=== PATIENT | female | born 1935 | race Caucasian/White ===

== ENCOUNTER 2017-01-18 16:07 | Emergency (ER) | payer MEDICARE, OTHER ==
[~2017-01-18] VITALS: Ht 157.5 cm; Wt 50.0 kg
[~2017-01-18 16:07] MED LIST: AMBI10TA PO; ENOX40P SQ; FERR325T PO; FISH1000 PO; FURO1TAB93 PO; LISI-591 PO; OXYC1SOL5 PO; SENN5UDC PO; STOO100T PO; TAB-TAB PO; TOPR100T15 PO; VITA100017 PO; VITA10002 PO; VITA200017 PO; Z.0.COMMODE-3:1
--- NOTE | 2017-01-18 16:14 | PD ---
HPI Chief Complaint: hand injury Time Seen by Provider: 16:13 Travel History International Travel<30 days: No Contact w/Intl Traveler<30days: No Traveled to known affect area: No History of Present Illness HPI 81-year-old female was trying to clean her curio cabinet which is made of glass. She lost her balance and hit her head onto the glass which made the glass break and as she was falling she lacerated both her forearm but right worse than the left. There was a lot of bleeding from the right forearm wound. After seeing the amount of blood patient got anxious and had a fecal incontinence. EMS arrived and had to apply pressure dressing to her right forearm. Vital signs were stable. There was no open head wounds. Patient was awake and answering appropriately but seemed anxious. [facility] Past Medical History Narrative Medical List of her past medical, surgical, social and family history is reviewed from the nursing note. Arthritis: Yes Blood Disorders: No Cancer: No Cardiovascular Problems: No Diabetes: No Diminished Hearing: No Endocrine: No Genitourinary: No Hepatitis: No Hiatal Hernia: No Hypertension: Yes Immune Disorder: No Musculoskeletal: Yes (ARTHRITIS, CHRONIC RIGHT FOOT PAIN, OSTEOPENIA) Neurologic: Yes (NEUROPATHY RIGHT HAND) Psychiatric: No Reproductive: No Respiratory: No Seizures: Yes Thyroid Disease: No Past Surgical History Abdominal Surgery: Yes (APPENDECTOMY) AICD: No Appendectomy: Yes Gynecologic Surgery: Yes (HYSTERECTOMY) Hysterectomy: Yes Joint Replacement: Yes (PANCHITO. KNEES) Pacemaker: No Tonsillectomy: Yes Social History Alcohol Use: No Tobacco Use: No Substance Use: No Allergies-Medications (Allergen,Severity, Reaction): Coded Allergies: No Known Allergies (Verified , 01/18/17) Comments No known drug allergies. Reported Meds & Prescriptions Reported Meds & Active Scripts Active Colace (Docusate Sodium) 100 Mg Capsule 1 Cap PO BID Keflex (Cephalexin) 500 Mg Capsule 500 Mg PO Q8H 10 Days Reported Ambien (Zolpidem Tartrate) 10 Mg Tab 10 Mg PO HS PRN Toprol XL (Metoprolol Succinate) 100 Mg Tab 100 Mg PO DAILY Oxycodone-Acetaminophen 10-325 mg Tab 1 Tab PO Q6H PRN Fish Oil 1,000 mg Softgel ([place]-3/Dha/Epa/Fish Oil) 1,000 Mg (120 Mg-180 Mg) Capsule Multiple Vitamin 1 Tab 1 Tab PO DAILY Stool Softener (Docusate Sodium) 100 Mg Tab Zestril (Lisinopril) 20 Mg Tab 20 Mg PO DAILY Lasix (Furosemide) 40 Mg Tab 40 Mg PO DAILY Ferrous Sulfate 325 Mg (65 Mg Iron) Tablet 325 Mg PO DAILY Vitamin B-12 (Cyanocobalamin) 1,000 Mcg Tab 1,000 Mcg PO DAILY Vitamin D3 (Cholecalciferol) 2,000 Unit Cap 2,000 Units PO DAILY Vitamin C (Ascorbic Acid) 250 Mg Tab 1,000 Mg PO Narrative Medication List of her home medications reviewed from the nursing note. Review of Systems Except as stated in HPI: all other systems reviewed are Neg Physical Exam Narrative GENERAL: Awake, alert, elderly, moderate distress SKIN: Focused skin assessment warm/dry. 7 cm large, deep right forearm laceration which is complex with visible tendon injury of the extensor tendon. Active bleeding noticed. The extensor digitorum communis muscle belly seems to be lacerated as well. Patient says that extending the index finger hurts the most. There are superficial laceration on the more distal part of the wrist. HEAD: Atraumatic. Normocephalic. EYES: Pupils equal and round. No scleral icterus. No injection or drainage. ENT: No nasal bleeding or discharge. Mucous membranes pink and moist. NECK: Trachea midline. No JVD. CARDIOVASCULAR: Regular rate and rhythm. No murmur appreciated. RESPIRATORY: No accessory muscle use. Clear to auscultation. Breath sounds equal bilaterally. GASTROINTESTINAL: Abdomen soft, non-tender, nondistended. Hepatic and splenic margins not palpable. MUSCULOSKELETAL: No obvious deformities. No clubbing. No cyanosis. No edema. NEUROLOGICAL: Awake and alert. No obvious cranial nerve deficits. Motor grossly within normal limits. Normal speech. PSYCHIATRIC: Appropriate mood and affect; insight and judgment normal. Data Data Last Documented VS Orders Orders Lidocaine 1% Inj (50 Ml) (Xylocaine 1% I (01/18/17 16:20) Lidocaine Pf 1% Inj (Xylocaine-Mpf 1% In (01/18/17 16:30) Forearm (2vws) (01/18/17 ) Cefazolin 2 Gm Premix (Ancef 2 Gm Premix (01/18/17 17:15) Tetanus/Diphtheria Tox Adult (Tetanus/Di (01/18/17 17:15) Ct Brain W/O Iv Contrast(Rout) (01/18/17 ) Sodium Chlorid 0.9% 500 Ml Inj (Ns 500 M (01/18/17 17:45) Lidocaine 1% Inj (50 Ml) (Xylocaine 1% I (01/18/17 18:15) Forearm (2vws) (01/18/17 19:02) MDM Medical Decision Making Medical Screen Exam Complete: Yes Emergency Medical Condition: Yes Medical Record Reviewed: Yes Differential Diagnosis Complex deep laceration, retained foreign body, extensor digitorum communists muscle belly and tendon laceration Narrative Course 6:50 PM the wound was cleaned with 1.5 L of normal saline and Betadine. Please refer to my procedure note regarding the repair. X-ray of the wrist showed retained foreign body. The PA has reopened the wound and trying to extract the foreign body. Patient eventually needs to follow up with hand surgeon. Hence the laceration is just superficially opposed so that he can open up and repair the tendon. This weekend there is no hand coverage. However Friday Dr. Fleming is on and I will have the patient follow up with Dr. Fleming's office. Was given IM tetanus and IV Ancef. Eventually that she'll be discharged home. Procedures Procedure Narrative LACERATION LOCATION: Right forearm dorsal surface LENGTH: 7 NUMBER OF STITCHES/AASHISH: 6 REPAIR: The area of the laceration was prepped with Betadine and sterilely draped. The laceration was infiltrated with 1% lidocaine 10 mL. The wound was copiously irrigated and explored without evidence of foreign body, tendon injury or neurovascular injury. The wound was closed using 3. 0 nylon. This was a single layer repair. A sterile dressing was applied. The patient was advised to keep the dressing clean and dry. Patient tolerated the procedure well. EKG Prior to Arrival: No Diagnosis Primary Impression: Forearm laceration Qualified Codes: S51.811A - Laceration without foreign body of right forearm, initial encounter Additional Impressions: Foreign body in forearm Qualified Codes: S50.851A - Superficial foreign body of right forearm, initial encounter Extensor tendon laceration of forearm with open wound Qualified Codes: S56.921A - Laceration of unspecified muscles, fascia and tendons at forearm level, right arm, initial encounter; S51.801A - Unspecified open wound of right forearm, initial encounter Referrals: León Nation III, MD 3 days Additional Instructions: Please follow-up with the hand surgeon whose name, number and office address has been provided in this discharge instructions. Call him Friday first thing in the morning to get an appointment. Keep the wound clean and dry. Take the medication as per the prescription direction. Change the dressing in 48 hours. Return to the ER if the condition worsens or any other new concerns. Med/Other Pt SpecificInfo: Prescription(s) given Scripts Docusate Sodium (Colace) 100 Mg Capsule 1 CAP PO BID, #10 Prov: Zarina Kwon MD 01/18/17 Cephalexin (Keflex) 500 Mg Capsule 500 MG PO Q8H for Infection for 10 Days, #30 CAP 0 Refills Prov: Zarina Kwon MD 01/18/17 Disposition: 01 DISCHARGE HOME Condition: Stable Zarina Kwon MD Jan 18, 2017 16:14
[2017-01-18 16:17] VITALS: BP 141/70; PULSE 84; RESP 18; TEMP 97.9; O2SAT 96
[2017-01-18] MEDS ORDERED: LIDOCAINE HCL 1% 50 ML VIAL ONE (16:20)
[2017-01-18] MEDS ORDERED: MULTTAB67 PO (16:30)
[2017-01-18] MEDS ORDERED: LISI-591 PO (16:30)
[2017-01-18] MEDS ORDERED: OMEG100046 (16:30)
[2017-01-18] MEDS ORDERED: AMBI10TA PO (16:30)
[2017-01-18] MEDS ORDERED: FURO1TAB60 PO (16:30)
[2017-01-18] MEDS ORDERED: STOO100T (16:30)
[2017-01-18] MEDS ORDERED: LIDOCAINE HCL 1% PF 30 ML VIAL INFIL ONE (16:30)
[2017-01-18] MEDS ORDERED: OXYC1TAB36 PO (16:30)
[2017-01-18] MEDS ORDERED: FERR325T8 PO (16:30)
[2017-01-18] MEDS ORDERED: VITA250T3 PO (16:30)
[2017-01-18] MEDS ORDERED: VITA2000 PO (16:30)
[2017-01-18] MEDS ORDERED: TOPR100T PO (16:30)
[2017-01-18] MEDS ORDERED: VITA10002 PO (16:30)
[2017-01-18] MEDS ORDERED: ceFAZolin 2 GM PREMIX 50 ML IV ONE (17:15)
[2017-01-18] MEDS ORDERED: TETANUS/DIPHTHERIA TOXOID ADULT 0.5 ML VIAL IM ONE (17:15)
--- NOTE | 2017-01-18 17:42 | RADRPT ---
EXAM DATE/TIME: 01/18/2017 17:11 [facility] COMPARISON: No previous studies available for comparison. INDICATIONS : Pain from laceration with possible glass fragments in arm. MEDICAL HISTORY : None. SURGICAL HISTORY : Carpal tunnel surgery. Trigger finger release. ENCOUNTER: Initial ACUITY: 1 day PAIN SCORE: 5/10 LOCATION: Right forearm. FINDINGS: Two view examination of the right forearm demonstrates no evidence of fracture or dislocation. There is mild osteopenia. There is a 4 x 2 mm radiopaque density projected adjacent to the mid ulna. On the AP view there is an adjacent 4 x 0.8 mm radiopaque structure which is not visualized on the lateral exam. CONCLUSION: 1. Small radiopaque foreign body adjacent to the mid ulna which could represent a piece of glass. 2. A smaller more linear structure seen on only one view which may be artifactual. Jabari Arriaga MD on January 18, 2017 at 17:38 Board Certified Radiologist. This report was verified electronically.
[2017-01-18] MEDS ORDERED: SODIUM CHLORID 0.9% 500 ML INJ 500 ML IV ONE (17:45)
[2017-01-18 17:56] VITALS: BP_SYST 141; BP_SYST 145; BP_DIAS 70; BP_DIAS 76; PULSE 77; RESP 16; O2SAT 97
[2017-01-18] MEDS ORDERED: LIDOCAINE HCL 1% 50 ML VIAL INFIL ONE (18:15)
--- NOTE | 2017-01-18 18:16 | PD ---
Physical Exam Date Seen by Provider: Jan 18, 2017 Time Seen by Provider: 18:15 Data Data Last Documented VS Vital Signs Date Time Temp Pulse Resp B/P (MAP) Pulse Ox O2 Delivery O2 Flow Rate FiO2 01/18/17 19:23 66 18 140/70 (93) 99 Room Air 01/18/17 16:17 97.9 Orders Orders Lidocaine 1% Inj (50 Ml) (Xylocaine 1% I (01/18/17 16:20) Lidocaine Pf 1% Inj (Xylocaine-Mpf 1% In (01/18/17 16:30) Forearm (2vws) (01/18/17 ) Cefazolin 2 Gm Premix (Ancef 2 Gm Premix (01/18/17 17:15) Tetanus/Diphtheria Tox Adult (Tetanus/Di (01/18/17 17:15) Ct Brain W/O Iv Contrast(Rout) (01/18/17 ) Sodium Chlorid 0.9% 500 Ml Inj (Ns 500 M (01/18/17 17:45) Lidocaine 1% Inj (50 Ml) (Xylocaine 1% I (01/18/17 18:15) Forearm (2vws) (01/18/17 19:02) MDM Supervised Visit with GRACE: No Narrative Course I was asked to evaluate this patient's right forearm laceration sustained on a piece of glass before arrival. The patient was initially seen by Dr. Kwon. Please see her note for full H& P. On my exam reveals a 6 cm laceration on the anterior aspect of the right forearm. Dr. Kwon has previously placed for nylon sutures in the wound. X- ray reveals small radiopaque foreign body. I am reexploring the wound to remove that fragment. Wound exploration and laceration repair was performed. Please see my procedure note for details. Postprocedure x-rays reveals that the foreign body is still in place. Patient has follow-up with Dr. Nation in [address] Kwon retains care of this patient. Please see her note for disposition. Procedures Procedure Narrative LACERATION LOCATION: Right forearm LENGTH: 6 cm NUMBER OF STITCHES/AASHISH: 5 REPAIR: The area of the laceration was prepped with Betadine and sterilely draped. The laceration was infiltrated with 1% lidocaine. The wound was copiously irrigated and explored. I was unable to palpate the foreign body. The laceration partially transects the musculature. The wound was closed using 4-0 nylon. This was a single layer repair. A sterile dressing was applied. The patient was advised to keep the dressing clean and dry. Patient tolerated the procedure well. Scripts Docusate Sodium (Colace) 100 Mg Capsule 1 CAP PO BID, #10 Prov: Zarina Kwon MD 01/18/17 Hydrocodone-Acetaminophen (Hydrocodone-Acetaminophen) 5-325 mg Tab 1 TAB PO Q6H Y for PAIN, #15 TAB 0 Refills Prov: Zarina Kwon MD 01/18/17 Cephalexin (Keflex) 500 Mg Capsule 500 MG PO Q8H for Infection for 10 Days, #30 CAP 0 Refills Prov: Zarina Kwon MD 01/18/17 Antonia Colmenares Jan 18, 2017 18:16
--- NOTE | 2017-01-18 18:23 | RADRPT ---
EXAM DATE/TIME: 01/18/2017 18:14 [facility] COMPARISON: No previous studies available for comparison. INDICATIONS : Trauma; fall. RADIATION DOSE: 32.81 CTDIvol (mGy) MEDICAL HISTORY : Hypertension. Seizures. SURGICAL HISTORY : Appendectomy. Hysterectomy. ENCOUNTER: Initial ACUITY: 1 day PAIN SCALE: 5/10 LOCATION: cranial TECHNIQUE: Multiple contiguous axial images were obtained of the head. Using automated exposure control and adj ustment of the mA and/or kV according to patient size, radiation dose was kept as low as reasonably a chievable to obtain optimal diagnostic quality images. DICOM format image data is available electro nically for review and comparison. FINDINGS: CEREBRUM: The ventricles are normal for age. No evidence of midline shift, mass lesion, hemorrhage or acute in farction. No extra-axial fluid collections are seen. POSTERIOR FOSSA: The cerebellum and brainstem are intact. The 4th ventricle is midline. The cerebellopontine angle i s unremarkable. EXTRACRANIAL: The visualized portion of the orbits is intact. SKULL: The calvaria is intact. No evidence of skull fracture. CONCLUSION: Negative noncontrast CT Jabari Arriaga MD on January 18, 2017 at 18:21 Board Certified Radiologist. This report was verified electronically.
[2017-01-18] MEDS ORDERED: COLA100C PO (18:58)
[2017-01-18] MEDS ORDERED: HYDR-3516 PO (18:58)
[2017-01-18] MEDS ORDERED: CEPH-460 PO (18:58)
[2017-01-18 19:23] VITALS: BP 140/70; PULSE 66; RESP 18; O2SAT 99
--- NOTE | 2017-01-18 19:38 | RADRPT ---
EXAM DATE/TIME: 01/18/2017 19:10 [facility] COMPARISON: FOREARM RIGHT (2VWS), January 18, 2017, 17:11. INDICATIONS : Patient cut arm on glass. Re-check for foreign body. MEDICAL HISTORY : None. SURGICAL HISTORY : None. ENCOUNTER: Subsequent ACUITY: 1 day PAIN SCORE: 2/10 LOCATION: Right Forearm FINDINGS: Two view examination of the right forearm demonstrates no evidence of fracture or dislocation. There is mild osteopenia. The small radiopaque foreign body is again identified adjacent to the mid ulna. T his measures approximately 4 x 2 mm. There are is overlying soft tissue swelling and bandages. CONCLUSION: The previously noted small radiopaque foreign body is again identified. Jabari Arriaga MD on January 18, 2017 at 19:35 Board Certified Radiologist. This report was verified electronically.
== END 2017-01-18 20:32 | disposition home or self-care (01) ==
LOC: NEPC 16:07
DX: S50.851A Superficial foreign body of right forearm, initial encounter (principal); W01.190A Fall on same level from slipping, tripping and stumbling with subsequent striking against furniture, initial encounter; Y93.E9 Activity, other interior property and clothing maintenance; Y92.009 Unspecified place in unspecified non-institutional (private) residence as the place of occurrence of the external cause
CPT/HCPCS: 12002; 70450; 73090; 96360; 99285; J7040